=== PATIENT | male | born 1935 | race African-American/Black ===

== ENCOUNTER 2021-03-04 08:00 | Outpatient (CLI) | payer OTHER ==
[~2021-03-04 08:00] MED LIST: AVAPRO300 MG; GILTUSS TR1 TAB.SR .; HYDROCHLOROTHIA25 MG; NORVASC5 MG
== END 2021-03-04 08:30 | disposition home or self-care (01) ==
LOC: PPH VACUNA 08:00
PROVIDERS: ATTEND Emergency Medicine Pediatric Emergency Medicine
DX: Z23 Encounter for immunization (principal)